=== PATIENT | male | born 1995 | race Caucasian/White ===

== ENCOUNTER 2016-08-30 23:57 | Emergency (ER) | payer OTHER ==
[~2016-08-30] VITALS: Ht 185.4 cm; Wt 117.9 kg
[2016-08-31] MEDS ORDERED: MEDROL DOSEPAK4 MG PO (00:51)
[2016-08-31] MEDS ORDERED: CYCLOBENZAPRINE10 MG PO (00:51)
[2016-08-31] MEDS ORDERED: NAPROSYN500 MG PO (00:51)
== END 2016-08-31 00:55 | disposition home or self-care (01) ==
LOC: ED 23:57
DX: S16.1XXA Strain of muscle, fascia and tendon at neck level, initial encounter (principal); V89.2XXA Person injured in unspecified motor-vehicle accident, traffic, initial encounter; Y93.89 Activity, other specified; Y92.413 State road as the place of occurrence of the external cause; Y99.8 Other external cause status

== ENCOUNTER 2016-12-08 09:35 | Emergency (ER) | payer OTHER ==
[~2016-12-08] VITALS: Ht 185.4 cm; Wt 113.4 kg
[~2016-12-08 09:35] MED LIST: CYCLOBENZAPRINE10 MG PO; MEDROL DOSEPAK4 MG PO; NAPROSYN500 MG PO
[2016-12-08] MEDS ORDERED: NAPROSYN500 MG PO (09:52)
== END 2016-12-08 11:38 | disposition home or self-care (01) ==
LOC: ED 09:35
DX: S46.911A Strain of unspecified muscle, fascia and tendon at shoulder and upper arm level, right arm, initial encounter (principal); R03.0 Elevated blood-pressure reading, without diagnosis of hypertension; F17.200 Nicotine dependence, unspecified, uncomplicated; X58.XXXA Exposure to other specified factors, initial encounter; Y93.89 Activity, other specified; Y92.69 Other specified industrial and construction area as the place of occurrence of the external cause; Y99.9 Unspecified external cause status

== ENCOUNTER 2020-11-29 02:24 | Emergency (ER) | payer BC | END 2020-11-29 03:29 | disposition left against medical advice (07) | LOC: ED 02:24 | DX: S01.511A Laceration without foreign body of lip, initial encounter (principal); F17.200 Nicotine dependence, unspecified, uncomplicated; Z79.899 Other long term (current) drug therapy; W20.8XXA Other cause of strike by thrown, projected or falling object, initial encounter; Y93.89 Activity, other specified; Y92.89 Other specified places as the place of occurrence of the external cause; Y99.8 Other external cause status ==